=== PATIENT | female | born 1990 | race Caucasian/White ===

== ENCOUNTER → 2019-07-31 | Outpatient (CLI) | payer OTHER ==
--- NOTE | 2019-08-02 15:59 | REP ---
Four views right foot: 07/31/2019. Indication: Right foot pain. Comparison: None. Findings: There is no acute fracture, subluxation or dislocation. No lytic or blastic lesions are present. No significant soft tissue abnormalities are detected. Impression: No acute osseous injury of the right foot. Electronically Signed by Narinder Nguyen DO 08/02/2019 03:51 P
== END ==
LOC: M WUC 13:45
PROVIDERS: ATTEND Nurse Practitioner Family
DX: M79.671 Pain in right foot (principal)

== ENCOUNTER → 2023-01-18 | Outpatient (CLI) | payer OTHER ==
[~2023-01-18] MED LIST: ACET-683 PO; IBUP80TA PO; PRENTAB9 PO; TUMS500C PO
== END ==
LOC: MERGE 08:30 → M WHC 08:48
PROVIDERS: ATTEND Obstetrics & Gynecology
DX: Z34.82 Encounter for supervision of other normal pregnancy, second trimester (principal)

== ENCOUNTER → 2023-02-26 | Outpatient (CLI) | payer OTHER ==
[2023-02-26 12:50] LABS: HEMATOCRIT 36.6 % (36.0-47.0); HEMOGLOBIN 12.3 g/dl (12.0-15.5); MEAN CORPUSCULAR HEMOGLOBIN 31.9 pg (27.0-33.0); MEAN CORPUSCULAR HGB CONC 33.6 g/dl (32.0-36.5); MEAN CORPUSCULAR VOLUME 94.8 fl (80.0-96.0); PLATELET COUNT, AUTOMATED 285 10^3/uL (150-450); RED BLOOD COUNT 3.86 10^6/uL (4.00-5.40); WHITE BLOOD COUNT 10.5 10^3/uL (4.0-10.0)
== END ==
LOC: M WUC 09:00
PROVIDERS: ATTEND Obstetrics & Gynecology
DX: Z34.82 Encounter for supervision of other normal pregnancy, second trimester (principal)
CPT/HCPCS: 36415; 82950; 85027; 86850; 86901; J2790

== ENCOUNTER → 2023-03-18 | Outpatient (CLI) | payer OTHER | LOC: M WHC 12:11 | PROVIDERS: ATTEND Obstetrics & Gynecology | DX: O44.43 Low lying placenta NOS or without hemorrhage, third trimester (principal) ==

== ENCOUNTER → 2023-04-30 | Outpatient (REF) | payer OTHER | LOC: M LAB REF 15:11 | PROVIDERS: ATTEND Obstetrics & Gynecology | DX: Z34.83 Encounter for supervision of other normal pregnancy, third trimester (principal) ==

== ENCOUNTER 2023-05-25 12:20 | Inpatient (IN) | payer OTHER ==
[2023-05-25] VITALS (8 sets, daily range): BP systolic 104–128; BP diastolic 62–84; TEMP 96.9; O2SAT 98–100
[~2023-05-25] VITALS: Ht 152.4 cm; Wt 61.6 kg
[2023-05-25] MEDS ORDERED: PEPC1TAB5 PO (12:37)
[2023-05-25] MEDS ORDERED: HOME MED LIST COMPLETE! XX SCH (12:40)
[2023-05-25 13:10] LABS: HEMOGLOBIN 13.8 g/dl (12.0-15.5); MEAN CORPUSCULAR HEMOGLOBIN 29.2 pg (27.0-33.0); MEAN CORPUSCULAR HGB CONC 33.7 g/dl (32.0-36.5); MEAN CORPUSCULAR VOLUME 86.9 fl (80.0-96.0); PLATELET COUNT, AUTOMATED 182 10^3/uL (150-450); RED BLOOD COUNT 4.72 10^6/uL (4.00-5.40); WHITE BLOOD COUNT 8.4 10^3/uL (4.0-10.0)
[2023-05-25] MEDS ORDERED: OXYTOCIN 30UNITS IN 0.9% NaCl 500ML IV BAG As Ordered ONE (13:23)
[2023-05-25] MEDS ORDERED: LIDOCAINE 1% MDV 20ML VIAL INFIL PRN (13:25)
[2023-05-25] MEDS ORDERED: OXYTOCIN DRIP 30 UNITS in IV 1 EA IV PRN (13:25)
[2023-05-25] MEDS: LR 1,000 ML IV SCH (15:16)
[2023-05-25] MEDS ORDERED: ceFAZolin 2 GM/D5W 50 ML IV BAG As Ordered ONE (16:24)
[2023-05-25] MEDS ORDERED: AZITHROMYCIN INJ 500MG VIAL As Ordered ONE (16:25)
[2023-05-25] MEDS ORDERED: BICITRA 30ML SOLN UDC As Ordered ONE (16:25)
[2023-05-25] MEDS: AZITHROMYCIN INJ 500 MG, VIAL MATE ADAPTER 1 EACH in NS 250 ML IV ONE (16:29)
[2023-05-25] MEDS: ceFAZolin SOD 2 GM in IV 1 EA IV ONE (16:29)
[2023-05-25] MEDS: BICITRA 30ML SOLN UDC PO ONE (16:29)
[2023-05-25] MEDS ORDERED: SLF 3 ML SYR IV SCH (17:05)
[2023-05-25] MEDS ORDERED: METOCLOPRAMIDE INJ 10MG/2ML VIAL IV PRN (17:05)
[2023-05-25] MEDS ORDERED: oxyCODONE 5MG TAB PO PRN (17:05)
[2023-05-25] MEDS ORDERED: **NOTE PATIENT COMMENT** MISC XX SCH (17:05)
[2023-05-25] MEDS ORDERED: ONDANSETRON 4MG 2ML VIAL IV PRN (17:05)
[2023-05-25] MEDS ORDERED: fentaNYL 100 MCG/2 ML INJECTION IV PRN (17:05)
[2023-05-25] MEDS ORDERED: NALOXONE INJ 0.4MG/1ML VIAL IV PRN ×2 (17:05)
[2023-05-25] MEDS ORDERED: diphenhydrAMINE 50MG/ML VIAL IV PRN (17:05)
[2023-05-25] MEDS ORDERED: MORPHINE PRES-FREE INJ 10 MG/10 ML VIAL As Ordered ONE (17:11)
[2023-05-25] MEDS ORDERED: METOCLOPRAMIDE INJ 10MG/2ML VIAL As Ordered ONE (17:11)
[2023-05-25] MEDS ORDERED: ONDANSETRON 4MG 2ML VIAL As Ordered ONE (17:11)
[2023-05-25] MEDS ORDERED: PHENYLephrine 500MCG 5ML (100MCG/ML) SYRINGE As Ordered ONE (17:11)
[2023-05-25] MEDS ORDERED: KETOROLAC 60MG 2ML VIAL As Ordered ONE (17:11)
[2023-05-25] MEDS ORDERED: DOCUSATE SODIUM 100MG CAPSULE PO PRN (17:25)
[2023-05-25] MEDS ORDERED: SIMETHICONE 80MG CHEW TAB PO PRN (17:25)
[2023-05-25] MEDS ORDERED: PERCOCET 5MG/325MG TAB PO PRN (17:25)
[2023-05-25 17:29] LABS: CORD GAS ABE A -16.6; CORD GAS HCO3 A 16.1 MMOL/L; CORD GAS O2 SAT A 32.9 %; CORD GAS PCO2 A 67.2 mmHg; CORD GAS PO2 A 22.9 mmHg; CORD GAS SBC A 11.3 MMOL/L; CORD GAS TCO2 A 18.2 MMOL/L
[2023-05-25 17:30] LABS: CORD GAS ABE V -15.7; CORD GAS HCO3 V 15.1 MMOL/L; CORD GAS O2 SAT V 24.2 %; CORD GAS PCO2 V 54.3 mmHg; CORD GAS PH V 7.062 UNITS; CORD GAS PO2 V 18.2 mmHg; CORD GAS SBC V 11.7 MMOL/L; CORD GAS TCO2 V 16.8 MMOL/L
[2023-05-25 17:31] LABS: CORD GAS PH A 6.997 UNITS
[2023-05-25] MEDS: OXYTOCIN DRIP 30 UNITS in IV 1 EA IV SCH (17:49)
[2023-05-26] MEDS: KETOROLAC 30 MG/ML 1ML VIAL IV SCH (00:32)
[2023-05-26 02:00] VITALS: BP 115/70; O2SAT 97
[2023-05-26] MEDS: LR 1,000 ML IV SCH (03:29)
[2023-05-26 05:48] VITALS: BP 108/74; O2SAT 100
[2023-05-26 07:08] LABS: HEMATOCRIT 30.5 % (36.0-47.0); MEAN CORPUSCULAR HEMOGLOBIN 29.9 pg (27.0-33.0); MEAN CORPUSCULAR HGB CONC 33.4 g/dl (32.0-36.5); MEAN CORPUSCULAR VOLUME 89.4 fl (80.0-96.0); PLATELET COUNT, AUTOMATED 155 10^3/uL (150-450); RED BLOOD COUNT 3.41 10^6/uL (4.00-5.40); WHITE BLOOD COUNT 17.2 10^3/uL (4.0-10.0)
[2023-05-26 07:11] LABS: HEMOGLOBIN 10.2 g/dl (12.0-15.5)
[2023-05-26] MEDS: PRENATAL VITAMINS CHEWABLE TABLET PO SCH (08:41)
[2023-05-26 10:00] VITALS: BP 106/69; O2SAT 100
[2023-05-26] MEDS ORDERED: OXYC1TAB23 PO (12:11)
[2023-05-26] MEDS ORDERED: COLA100C5 PO (12:11)
[2023-05-26] MEDS ORDERED: IBUP80TA PO (12:11)
[2023-05-26 14:00] VITALS: BP 106/62; O2SAT 100
[2023-05-26 18:00] VITALS: BP 129/60; O2SAT 98
[2023-05-26] MEDS: IBUPROFEN 800 MG TAB PO SCH (20:29)
[2023-05-26 22:00] VITALS: BP 110/66; O2SAT 100
[2023-05-27 02:00] VITALS: BP 100/61; O2SAT 96
[2023-05-27] MEDS: RHOGAM 300MCG (1500IU) INJ IM SCH (04:13)
[2023-05-27 06:00] VITALS: BP 110/70; O2SAT 99
[2023-05-27] MEDS: MEASLES,MUMPS,RUBELLA VACCINE INJ (MMR-II) SC.IMMUN ONE (09:00)
[2023-05-27 10:00] VITALS: BP 112/74; O2SAT 98
[2023-06-07] MEDS ORDERED: IBUP-1764 PO (07:32)
[2023-06-07] MEDS ORDERED: MIRA3350 PO (07:32)
[2023-06-07] MEDS ORDERED: DOCU100C16 PO (07:32)
[2023-06-12] MEDS ORDERED: CLAR500T97 PO (08:03)
[2023-06-12] MEDS ORDERED: OMEP40CA4 PO (08:03)
[2023-06-12] MEDS ORDERED: METR-265 PO (08:03)
[2023-06-12] MEDS ORDERED: AMOX500C PO (08:03)
[2023-06-12] MEDS ORDERED: HYDR-3713 PO (08:03)
== END 2023-05-27 18:00 | disposition home or self-care (01) | DRG 788 ==
LOC: M LDO 12:20 → M LDI 13:09 → M OBS 18:52
PROVIDERS: ADMIT Specialist; ATTEND Specialist
PROC: 10D00Z1 Extraction of Products of Conception, Low, Open Approach (ICD-10-PCS; principal; 2023-05-25 16:28)
DX: O32.4XX0 Maternal care for high head at term, not applicable or unspecified (principal); Z37.0 Single live birth; Z3A.39 39 weeks gestation of pregnancy

== ENCOUNTER 2023-06-05 10:58 | Emergency (ER) | payer OTHER ==
[~2023-06-05] VITALS: Ht 152.4 cm; Wt 52.3 kg
[~2023-06-05 10:58] MED LIST changes: +COLA100C5 PO; +OXYC1TAB23 PO; +PEPC1TAB5 PO
[2023-06-05] MEDS: NS 1,000 ML IV ONE (12:55)
[2023-06-05] MEDS: ACETAMINOPHEN *IV* 1,000 MG in IV 1 EA IV ONE (12:56)
[2023-06-05 13:16] LABS: HEMATOCRIT 42.6 % (36.0-47.0); MEAN CORPUSCULAR HEMOGLOBIN 29.7 pg (27.0-33.0); MEAN CORPUSCULAR HGB CONC 32.9 g/dl (32.0-36.5); MEAN CORPUSCULAR VOLUME 90.4 fl (80.0-96.0); PLATELET COUNT, AUTOMATED 469 10^3/uL (150-450); RED BLOOD COUNT 4.71 10^6/uL (4.00-5.40); WHITE BLOOD COUNT 6.3 10^3/uL (4.0-10.0)
[2023-06-05 13:27] LABS: LIPASE 55 U/L (12-53)
[2023-06-05 13:29] LABS: ALBUMIN 2.8 G/DL (3.2-5.2); ALKALINE PHOSPHATASE 136 U/L (46-116); ALT/SGPT 63 U/L (7.0-40); AST/SGOT 39 U/L (<34); BILIRUBIN,DIRECT 0.2 MG/DL (<0.4); BILIRUBIN,TOTAL 0.5 MG/DL (0.3-1.2); BLOOD UREA NITROGEN 19 MG/DL (9-23); CALCIUM LEVEL 8.4 MG/DL (8.5-10.1); CARBON DIOXIDE LEVEL 24 MMOL/L (20-31); CHLORIDE LEVEL 104 MMOL/L (98-107); GLOMERULAR FILTRATION RATE > 60.0 (>60); GLUCOSE, FASTING 121 MG/DL (60-100); POTASSIUM SERUM 4.1 MMOL/L (3.5-5.1); SODIUM LEVEL 137 MMOL/L (136-145)
[2023-06-05] MEDS: MORPHINE 4 MG/ML 1ML VIAL IV ONE (13:58)
[2023-06-05 14:57] LABS: LYMPHOCYTES 13 % (16-44); MONOCYTES 7 % (0-5); NEUTROPHILS 62 % (28-66); PLATELET ESTIMATE INCREASED (NORMAL)
[2023-06-05 14:58] LABS: ANISOCYTOSIS 1+; POLYCHROMASIA 1+
[2023-06-05] MEDS: KETOROLAC 30 MG/ML 1ML VIAL IV ONE (15:43)
[2023-06-05] MEDS: FLEET ENEMA PR ONE (16:35)
[2023-06-05] MEDS ORDERED: MIRA3350 PO (17:48)
[2023-06-05 18:09] VITALS: BP 109/72; TEMP 97; O2SAT 99
[2023-06-06] MEDS ORDERED: ceFAZolin 2 GM/D5W 50 ML IV BAG As Ordered ONE (04:04)
[2023-06-07] MEDS ORDERED: MIRA3350 PO (07:32)
[2023-06-07] MEDS ORDERED: IBUP-1764 PO (07:32)
[2023-06-07] MEDS ORDERED: DOCU100C16 PO (07:32)
== END 2023-06-05 18:10 | disposition home or self-care (01) ==
LOC: EDBD 10:58 → M ED 10:58
DX: K59.00 Constipation, unspecified (principal); D18.03 Hemangioma of intra-abdominal structures
CPT/HCPCS: 74021; 76705; 80048; 80076; 83690; 85025; 86140; 96361; 96365; 96375; 99284; J0131; J1885

== ENCOUNTER → 2023-07-04 | Outpatient (CLI) | payer OTHER ==
[~2023-07-04] MED LIST changes: +AMOX500C PO; +CLAR500T97 PO; +DOCU100C16 PO; +HYDR-3713 PO; +IBUP-1764 PO; +METR-265 PO; +MIRA3350 PO; +OMEP40CA4 PO
== END ==
LOC: M LAB 10:52
PROVIDERS: ATTEND Surgery
DX: K25.1 Acute gastric ulcer with perforation (principal)

== ENCOUNTER 2023-08-09 00:23 | Emergency (ER) | payer OTHER ==
[~2023-08-09] VITALS: Ht 152.4 cm; Wt 48.5 kg
[2023-08-09 00:24] VITALS: BP 110/79; TEMP 98; O2SAT 98
[2023-08-09 01:09] LABS: BASO # 0.1 10^3/uL (0.0-0.2); BASO % 0.6 % (0.0-1.0); EOS # 0.2 10^3/uL (0.0-0.5); EOS % 1.3 % (0.0-3.0); HEMATOCRIT 41.7 % (36.0-47.0); HEMOGLOBIN 13.8 g/dl (12.0-15.5); LYMPH # 1.5 10^3/uL (1.5-5.0); LYMPH % 11.9 % (24.0-44.0); MEAN CORPUSCULAR HEMOGLOBIN 27.4 pg (27.0-33.0); MEAN CORPUSCULAR HGB CONC 33.1 g/dl (32.0-36.5); MEAN CORPUSCULAR VOLUME 82.9 fl (80.0-96.0); MONO # 0.7 10^3/uL (0.0-0.8); MONO % 5.4 % (2.0-8.0); NEUTROPHILS # 10.2 10^3/uL (1.5-8.5); NEUTROPHILS % 80.5 % (36.0-66.0); PLATELET COUNT, AUTOMATED 313 10^3/uL (150-450); RED BLOOD COUNT 5.03 10^6/uL (4.00-5.40); WHITE BLOOD COUNT 12.7 10^3/uL (4.0-10.0)
[2023-08-09 01:41] LABS: LIPASE 37 U/L (12-53)
[2023-08-09 01:50] LABS: ALBUMIN 4.6 G/DL (3.2-5.2); ALKALINE PHOSPHATASE 100 U/L (46-116); ALT/SGPT 21 U/L (7.0-40); AST/SGOT 21 U/L (<34); BILIRUBIN,DIRECT 0.1 MG/DL (<0.4); BILIRUBIN,TOTAL 0.5 MG/DL (0.3-1.2); BLOOD UREA NITROGEN 14 MG/DL (9-23); CARBON DIOXIDE LEVEL 24 MMOL/L (20-31); CHLORIDE LEVEL 104 MMOL/L (98-107); CREATININE FOR GFR 0.75 MG/DL (0.55-1.30); GLOMERULAR FILTRATION RATE > 60.0 (>60); GLUCOSE, FASTING 140 MG/DL (60-100); POTASSIUM SERUM 3.3 MMOL/L (3.5-5.1); SODIUM LEVEL 139 MMOL/L (136-145)
== END 2023-08-09 02:11 | disposition left against medical advice (07) ==
LOC: M ED 00:23
DX: Z53.21 Procedure and treatment not carried out due to patient leaving prior to being seen by health care provider (principal)

== ENCOUNTER → 2023-08-12 | Outpatient (CLI) | payer OTHER ==
[~2023-08-12] MED LIST changes: +E-Z-GAS II EFFERVESCENT PACKET (SODIUM BICARB./CITRIC ACID/SIMETHICONE) As Ordered ONE; +E-Z-HD 98% w/w 340GM SUSP BTL As Ordered ONE; +E-Z-PAQUE 96% w/w SUSP 176GM BTL As Ordered ONE
== END ==
LOC: M RAD 07:30
PROVIDERS: ATTEND Surgery
DX: K44.9 Diaphragmatic hernia without obstruction or gangrene (principal); K21.9 Gastro-esophageal reflux disease without esophagitis

== ENCOUNTER → 2023-09-04 | Day surgery (SDC) | payer OTHER ==
[~2023-09-04] VITALS: Ht 152.4 cm; Wt 47.2 kg
[~2023-09-04] MED LIST changes: -E-Z-GAS II EFFERVESCENT PACKET (SODIUM BICARB./CITRIC ACID/SIMETHICONE) As Ordered ONE; -E-Z-HD 98% w/w 340GM SUSP BTL As Ordered ONE; -E-Z-PAQUE 96% w/w SUSP 176GM BTL As Ordered ONE; +NS 1,000 ML IV SCH; +OMEP40CA5 PO; +THERTAB52 PO
[2023-09-04 09:55] VITALS: BP 129/89; TEMP 96.1; O2SAT 99
== END | disposition home or self-care (01) ==
LOC: M OPP 09:41
PROVIDERS: ATTEND Surgery
DX: K25.1 Acute gastric ulcer with perforation (principal); Z53.8 Procedure and treatment not carried out for other reasons

== ENCOUNTER 2023-09-20 08:21 | Day surgery (SDC) | payer OTHER ==
[~2023-09-20] VITALS: Ht 152.4 cm; Wt 47.5 kg
[~2023-09-20 08:21] MED LIST changes: +LIDOCAINE 2% 100MG/5ML SDV (FOR ANES.) As Ordered ONE; -NS 1,000 ML IV SCH; +fentaNYL 100 MCG/2 ML INJECTION As Ordered ONE; +propofoL 200 MG/20 ML VIAL As Ordered ONE
[2023-09-20] MEDS: NS 1,000 ML IV ONE (08:39)
[2023-09-20 09:31] VITALS: TEMP 97.8
[2023-09-20 09:51] VITALS: BP 122/84; O2SAT 100
== END 2023-09-20 10:00 | disposition home or self-care (01) ==
LOC: M OPP 08:21
PROVIDERS: ATTEND Surgery
DX: Z48.815 Encounter for surgical aftercare following surgery on the digestive system (principal); K31.89 Other diseases of stomach and duodenum; K28.9 Gastrojejunal ulcer, unspecified as acute or chronic, without hemorrhage or perforation; Z79.1 Long term (current) use of non-steroidal anti-inflammatories (NSAID); Z79.899 Other long term (current) drug therapy
CPT/HCPCS: 43239; 88305; J3010

== ENCOUNTER → 2024-08-24 | Outpatient (REF) | payer BC, OTHER ==
[~2024-08-24] MED LIST changes: -LIDOCAINE 2% 100MG/5ML SDV (FOR ANES.) As Ordered ONE; -fentaNYL 100 MCG/2 ML INJECTION As Ordered ONE; -propofoL 200 MG/20 ML VIAL As Ordered ONE
[2024-08-26 15:15] LABS: HPV APTIMA Not Detected (Not Detected)
== END ==
LOC: M SFHCWAGY 15:19
PROVIDERS: ATTEND Nurse Practitioner Family
DX: L29.2 Pruritus vulvae (principal); Z12.4 Encounter for screening for malignant neoplasm of cervix; R87.610 Atypical squamous cells of undetermined significance on cytologic smear of cervix (ASC-US)
CPT/HCPCS: 87070; 87624; G0123